=== PATIENT | male | born 1995 | race Caucasian/White ===

== ENCOUNTER 2016-12-20 15:08 | Observation (INO) | payer SELFPAY ==
[~2016-12-20] VITALS: Ht 172.7 cm; Wt 72.0 kg
--- NOTE | 2016-12-21 06:57 | HP ---
ADMIT: 12/20/2016 RM/LOC: 315 [facility] MR#: [id number] [address] [facility] [address] [place] [id number] [address] [address] History and Physical SEX: M AGE: 21 : 1995 DATE OF SERVICE: CHIEF COMPLAINT: Drug overdose. HISTORY OF PRESENT ILLNESS: A 21-year-old male, who was found on the street apparently on the sidewalk unconscious by passerby, ambulance was called, he was brought in to the emergency room. Apparent drug overdose with trazodone. He had gastric lavage in the emergency room with removal of pill fragments, and activated charcoal was given. The patient is awake, able to give some history, but he is somewhat sleepy. Some history is obtained from his mother. Apparently, he was recently dismissed from [facility] after staying there for 2 days for suicidal ideation and depression. She said he was sent home on trazodone and Prozac. Josep states he only took trazodone, did not take any Prozac. Says he has been using methamphetamine last couple days, not sure how much. He has used marijuana in the past, but none in the last several days. He did drink some alcohol yesterday. He states it is complicated, he is depressed, did not really state why he took the overdose. His mother relates that he had a recent break-up with girlfriend. Josep says it is more complicated than that. According to mother, he has had multiple episodes of trying to harm himself in the past. Last one was four years ago when he tried to hang himself. He was at [facility] at least four times, hospitalized for bipolar depression. PAST MEDICAL HISTORY: No surgeries or operations, but previous four hospitalizations at [facility], recent hospitalization at [facility] as noted above. ALLERGIES: NONE. MEDICATIONS: Only trazodone and Prozac at current time. SOCIAL HISTORY: Mom states he was at [facility], but left there recently and was going to his Psych across the [place]. He had a job, but he quit. He does admit to smoking a pack of cigarettes per day and drinking alcohol. His drugs of choice are marijuana and methamphetamine. He also drinks alcohol as noted above. REVIEW OF SYSTEMS: The patient is not really able to give any review of systems at this time other than history of depression. PHYSICAL EXAMINATION: GENERAL: A 21-year-old male. He is alert, somewhat sleepy. Able to give some history, but not communicating really well. Does not make good eye contact. Somewhat withdrawn. VITAL SIGNS: Stable at this time with pulse 59, respiratory rate 22, O2 saturation 98% on room air. BP 114/34. Fingerstick blood sugar in the emergency room was 122. HEENT: Eyes are hyperemic. Pupils are equal, round, and reactive to light. Extraocular muscle intact. TMs not seen. Throat is moist, not inflamed. ADMIT: 12/20/2016 RM/LOC: 315 [facility] MR#: [id number] [address] [place] [id number] [address] [place] [id number] History and Physical SEX: M AGE: 21 : 1995 NECK: Supple. No meningeal signs. LUNGS: Clear to auscultation. Respirations not labored. HEART: Regular rate. No lifts, thrills, heaves, or murmur. ABDOMEN: Soft. No organomegaly or tenderness. /RECTAL: Deferred. EXTREMITIES: No clubbing, cyanosis, or edema. DIAGNOSTIC IMPRESSION: 1. Suicide attempt with drug overdose. 2. History of bipolar depression. 3. History of marijuana, methamphetamine, and alcohol use. 4. Tobacco abuse. PLAN: We will admit to ICU. IV fluids. He was given activated charcoal already. We will monitor vitals. Psychiatric consult for emergency protective custody. Augustus Be MD/ jenise JOB #: [id number] CC: Augustus Be, Attending Physician Augustus Be, Family Physician
[2016-12-22] MEDS ORDERED: POTASSIUM CHLO20 ME2 PO (06:03)
--- NOTE | 2017-01-01 07:48 | DS ---
ADMIT: 12/20/2016 RM/LOC: 315 [facility] MR#: [id number] [address] [facility] [address] [place], [place] [id number] [address] [place] [address] General Discharge Summary SEX: M AGE: 21 : 1995 ADMISSION DATE: 12/20/2016 DISCHARGE DATE: 12/21/2016 ADMITTING DIAGNOSES: 1. Intentional drug overdose. 2. Suicide attempt. DISMISSAL DIAGNOSES: 1. Intentional drug overdose. 2. Suicide attempt. Dismissed to [facility] on december 21. COMPLICATING DIAGNOSES: 1. History of depression. 2. History of cannabis abuse. CHIEF COMPLAINT AND HISTORY OF PRESENT ILLNESS: See history and physical for details. A 21-year-old male, found on the sidewalk unconscious by passerby, ambulance was called and he was brought to the emergency room. Apparently, he overdosed with trazodone tablets. He had gastric lavage done in the emergency room, which removed pill fragments and he was given activated charcoal. The patient's history is obtained from his mother, who was present in the emergency room. He recently was dismissed from [facility] after staying there for 2 days, for suicidal ideation and depression. He was sent home on trazodone and Prozac. Josep states he only took trazodone, did not take any Prozac. He states he has been using methamphetamine in the last couple days, not sure how much. He has used marijuana in the past, but none in the last several days. He also drinks some alcohol. He cannot really state why he tried to kill himself. His mother states his older girlfriend promised, but Josep says this is much more complicated than that, but not able to express and/or willing to explain it. LABORATORY REPORTS: See lab summary sheets. COURSE IN THE HOSPITAL: He was admitted to ICU, suicide precautions with a sitter, given IV Pepcid, drug screen was ordered, psych consult was ordered, emergency protective custody was placed and he was transferred to [facility] the following day, when he was medically stable. Vital signs were stable at the time of transfer, transferred by police. Augustus Be MD/ jenise JOB #: [id number] CC: Augustus Be MD, Attending Physician Augustus Be MD, Family Physician
--- NOTE | 2017-01-22 17:09 | ER ---
ADMIT: 12/20/2016 RM/LOC: 315 [facility] MR#: [id number] [address] [place], [place] [id number] [address] [place] [address] Emergency Room Report SEX: M AGE: 21 : 1995 DATE: 12/20/2016 This 21-year-old was found by a passerby laying on the sidewalk, subsequently called ambulance and ambulance arrived. The patient was alert, told them he was trying to kill himself by drug overdose. He had recently taken 14 of his trazodone in an attempt to end his life. He has had a prior history of trying to asphyxiate himself at suicide stating that he just does not want to live anymore. PAST MEDICAL HISTORY: As mentioned. PHYSICAL EXAM: GENERAL: 21-year-old in mild amount of distress. He is alert and appropriate. HEENT: Normocephalic, atraumatic. His pupils were equal and reactive. Gag is intact. LUNGS: Clear to auscultation. CARDIOVASCULAR: No murmur. Tachycardia is noted. ABDOMEN: Soft, nontender, positive bowel sounds. EXTREMITIES: Unremarkable. EMERGENCY ROOM COURSE: [facility] labs ordered, gastric lavage was initiated with a great deal of pill fragments returned. Dr. Be was subsequently consulted for admission and stabilization. DIAGNOSIS: Intentional drug overdose. Piter Pacheco MD/ mattl JOB #: [id number] CC: Augustus Be MD, Attending Physician Augustus Be MD, Family Physician
== END 2016-12-21 08:35 ==
LOC: ER 15:08 → 3ICU 15:55
PROVIDERS: ADMIT Family Medicine
DX: T43.212A Poisoning by selective serotonin and norepinephrine reuptake inhibitors, intentional self-harm, initial encounter (principal); F17.210 Nicotine dependence, cigarettes, uncomplicated; F12.10 Cannabis abuse, uncomplicated; F32.9 Major depressive disorder, single episode, unspecified; Z79.899 Other long term (current) drug therapy